=== PATIENT | male | born 1955 | race Caucasian/White ===

== ENCOUNTER 2020-08-19 12:43 | Day surgery (SDC) | payer OTHER ==
[~2020-08-19] VITALS: Ht 170.2 cm; Wt 105.0 kg
[~2020-08-19 12:43] MED LIST: ALLOPURINOL300 MG PO; LISINOPRIL-HCT1 EACH PO; SIMVASTATIN40 MG PO
[2020-08-19] MEDS ORDERED: ADULT ASPIRIN R81 MG PO (13:20)
[2020-08-19] MEDS ORDERED: NIACIN500 MG PO (13:21)
--- NOTE | 2020-08-19 16:09 | NUR ---
08/19/20 1609 Renata Rodriguez 1603 PATIENT ARRIVES TO PACU AWAKE OFF/ON, BUT VERY DROWSY. RESP EVEN AND UNLABORED, NC AT 3 LITERS. PATIENT DENIES PAIN OR NAUSEA. PASSING GAS. 1605 DR CHÁVEZ AT BEDSIDE TO TALK WITH PATIENT. OXYGEN OFF. 1608 PATIENT RESTING QUIETLY WITH EYES CLOSED. RESP EVEN AND UNLABORED, ROOM AIR SATS >95%.
--- NOTE | 2020-08-20 08:53 | OR ---
[facility] [address], [place] [address] Signed DATE OF OPERATION: 08/19/2020 SURGEON: Bruno Chávez MD PREOPERATIVE DIAGNOSES: 1. History of sigmoid resection in 2010 for diverticular disease. 2. Last colonoscopy normal in 2013. POSTOPERATIVE DIAGNOSES: Normal colon to cecum. PROCEDURE: Total colonoscopy to cecum. ANESTHESIA: Intravenous sedation, fentanyl 100 mcg, and Versed 3 mg. INDICATION: This 65-year-old white man is a patient of Dr. Lawrence, underwent sigmoid resection in 2010 for diverticular disease. He had a followup colonoscopy in 2012, which was normal. The patient in interval of time and despite no symptoms of bleeding diarrhea or constipation and no family history of colon cancer, he is now here for screening colonoscopy (surveillance). He understands the risks of bleeding, infection, and perforation related to colonoscopy, and wished to proceed. FINDINGS: The prep was good. Complete colonoscopy was undertaken of the cecum without question. The anastomosis was widely patent. There was no sign of polyps, diverticular formation, colitis, or cancer. DESCRIPTION OF PROCEDURE: The patient was brought to the endoscopy suite and placed in lateral decubitus position, given intravenous sedation to the point of slurred speech and nystagmus. Digital rectal examination was normal. An Olympus video colonoscope was passed in the rectum and manipulated throughout the colon, ultimately intubating the cecum itself. The ileocecal valve and appendiceal orifice were normal. Irrigation was undertaken as needed and the scope was carefully withdrawn, and examination throughout showed no sign of polyps, diverticular formation, colitis, or cancer. Retroflex view of the rectum was normal as well. The scope was Electronically Signed By: BRUNO CHÁVEZ MD 08/20/20 0853 PATIENT NAME: MERE MONTOYA OPERATIVE REPORT DATE OF : 57 REPORT #: [id number] PHYSICIAN: BRUNO CHÁVEZ MD PCP: GUDELIA LAWRENCE MD REPORT IS CONFIDENTIAL AND NOT TO BE RELEASED WITHOUT AUTHORIZATION [facility] [address] [place], [place] [address], [place] [address] Signed removed. The patient was taken to the recovery room in good condition. CONCLUDING DIAGNOSES: 1. No evidence of polyps. 2. Surprisingly, no sign of diverticula either. PLAN: Recommend repeat colonoscopy in 10 years, sooner if clinically indicated. He will return to the ongoing care of Dr. Lawrence. MD DARSHANA Carbajal/MODL /[id number] cc: Gudelia Lawrence MD Copies: GUDELIA LAWRENCE MD ~ Electronically Signed By: BRUNO CHÁVEZ MD 08/20/20 0853 PATIENT NAME: MERE MONTOYA OPERATIVE REPORT DATE OF : 57 REPORT #: [id number] PHYSICIAN: BRUNO CHÁVEZ MD PCP: GUDELIA LAWRENCE MD REPORT IS CONFIDENTIAL AND NOT TO BE RELEASED WITHOUT AUTHORIZATION
== END 2020-08-19 16:40 | disposition home or self-care (01) ==
LOC: OPS 12:43 → DS 12:47 → OPS 16:40
PROVIDERS: ATTEND Surgery
PROC: 0DJD8ZZ Inspection of Lower Intestinal Tract, Via Natural or Artificial Opening Endoscopic (ICD-10-PCS; principal; 2020-08-19 11:15)
DX: Z12.11 Encounter for screening for malignant neoplasm of colon (principal); I10 Essential (primary) hypertension; E78.5 Hyperlipidemia, unspecified; G47.33 Obstructive sleep apnea (adult) (pediatric); M10.9 Gout, unspecified; M67.88 Other specified disorders of synovium and tendon, other site; Z79.899 Other long term (current) drug therapy; Z86.010 Personal history of colon polyps; Z90.49 Acquired absence of other specified parts of digestive tract; Z98.0 Intestinal bypass and anastomosis status
CPT/HCPCS: 99153; G0500; J2250; J3010